=== PATIENT | female | born 1985 | race Caucasian/White ===

== ENCOUNTER 2017-07-22 22:11 | Day surgery (SDC) | payer OTHER ==
[~2017-07-22] VITALS: Ht 172.7 cm; Wt 132.5 kg
[2017-07-22 23:13] LABS: HEMATOCRIT 41.6 % (36.0-46.0); MCH 29.6 PG (29.0-34.0); MCHC 34.6 G/DL (30.0-36.0); MCV 85.4 FL (83-99); MEAN PLAT.VOLUME 10.9 uM^3 (9.5-12.4); PLATELET COUNT 204 K/uL (156-360); RBC DIS.WIDTH-CV 13.2 % (11.8-14.6); RED BLOOD COUNT 4.87 M/uL (3.80-5.20); WHITE BLOOD COUNT 12.3 K/uL (4.1-10.2)
[2017-07-22 23:25] LABS: CHLORIDE 106 mEq/L (99-109); POTASSIUM 3.4 mEq/L (3.7-5.4); SODIUM 141 mEq/L (136-147)
[2017-07-22 23:28] LABS: ANION GAP 16 MEQ/L (2-14)
[2017-07-22 23:30] LABS: GFR ESTIMATE (CALCULATED) > 59 mL/min/
[2017-07-22 23:31] LABS: UREA NITROGEN (BUN) 11 mg/dL (9-23)
[2017-07-22 23:39] LABS: GLUCOSE 299 mg/dL (70-99)
[2017-07-22 23:40] LABS: QUANTITATIVE HCG 2450.9 MIU/ML
[2017-07-23 00:09] LABS: ADD MIUA? YES; BILIRUBIN NEGATIVE; BLOOD LARGE; COLOR STRAW ((YELLOW)); GLUCOSE (STRIP) >=500; KETONES 80; LEUKOCYTES TRACE; NITRITE NEGATIVE; PROTEIN (STRIP) NEGATIVE; UROBILINOGEN 0.2 MG/DL (0.2-1.0)
[2017-07-23 00:43] LABS: BACTERIA NONE SEEN /HPF; EPITHELIAL CELLS RARE /HPF; MUCUS TRACE /LPF; RED BLOOD CELLS 30-40 /HPF (0-5); UCUL ADDED? NO; WHITE BLOOD CELLS 0-5 /HPF (0-5)
[2017-07-23 03:43] LABS: POINT-OF-CARE METER ID UU13113675
[2017-07-23 05:09] VITALS: BP 140/92
[2017-07-23 06:55] VITALS: BP 143/85
[2017-07-23 07:45] VITALS: BP 128/77
== END 2017-07-23 09:19 | disposition home or self-care (01) ==
LOC: EME 22:11 → RME 22:11 → SDC 07-23 02:26 → RME 07-23 02:26 → 2SOUTH 07-23 02:51 → ENRESERV 07-23 03:14 → 2EAST 07-23 04:58
PROVIDERS: Emergency Medicine; Obstetrics & Gynecology
PROC: 10D17ZZ Extraction of Products of Conception, Retained, Via Natural or Artificial Opening (ICD-10-PCS; principal; 2017-07-23)
DX: O03.4 Incomplete spontaneous abortion without complication (principal); Z3A.09 9 weeks gestation of pregnancy; I10 Essential (primary) hypertension; E11.9 Type 2 diabetes mellitus without complications; E86.0 Dehydration; E66.01 Morbid (severe) obesity due to excess calories; Z68.41 Body mass index [BMI] 40.0-44.9, adult; M06.9 Rheumatoid arthritis, unspecified; M79.7 Fibromyalgia; Z79.4 Long term (current) use of insulin
CPT/HCPCS: 76801; 80048; 81003; 82948; 84702; 85027; 86850; 86900; 86901; 88305; 94640; 99281; 99285; G0378; J0330; J1100; J2270; J2405; J2788; J3010; J7030

== ENCOUNTER → 2017-07-22 | Outpatient (CLI) | payer OTHER ==
[~2017-07-22] MED LIST: AMARYL2 MG PO; AMLODIPINE BESY10 MG PO; ATIVAN0.5 MG PO; BUSPAR10 MG PO; CATAPRES0.1 MG PO; CYMBALTA60 MG PO; ENDOCET 5-3251 EACH PO; FIORICET,ESG1 TABLET PO; FLEXERIL5 MG PO; GLIMEPIRIDE; GLUCOPHAGE1000 MG PO; HEPARIN SO5000 UNITS SC; HUMALOG100 UNIT/1 SC; HUMULIN N100 UNITS/ SC; IBUPROFEN800 MG PO; INVOKANA300 MG PO; LABETALOL HCL100 MG PO; LANTUS 3 M100 UNITS1 SC; LEVEMIR FL100 UNIT/1 SC; LISINOPRIL-HCT1 EAC3 PO; LISINOPRIL-HCT1 EACH PO; METFORMIN HCL1000 MG PO; MIRENA52 MG IY; NAPROXEN500 MG PO; NORCO 5/3251 TABLET PO; NORVASC10 MG PO; NOVOLIN,HU100 UNITS/ SC; PRENATAL TABLE1 EAC3 PO; PROTONIX40 MG PO; PROZAC40 MG PO; RANITIDINE HCL150 M1 PO; REGLAN10 MG PO; TORADOL10 MG PO; TRAMADOL HCL50 MG PO; TRULICITY1.5 MG/0.5 SC; VICTOZA 2-0.6 MG/0.1 SC; VITAMIN B-6100 MG PO; WELLBUTRIN SR100 MG PO; WELLBUTRIN SR150 MG PO; WOMEN'S DAILY1 EAC1 PO; ZESTORETIC 10-1 EACH PO; ZOFRAN ODT4 MG PO; aleve; microgestin
== END | disposition home or self-care (01) ==
LOC: CDC 11:36
DX: Z01.810 Encounter for preprocedural cardiovascular examination (principal); R94.31 Abnormal electrocardiogram [ECG] [EKG]
CPT/HCPCS: 93000